=== PATIENT | male | born 1965 | race Caucasian/White ===

== ENCOUNTER → 2020-09-08 | Outpatient (CLI) | payer OTHER ==
[~2020-09-08] MED LIST: ALEVE220 MG PO; ASPIRIN325 PO; LISINOPRIL-HCT1 EAC1 PO
== END ==
LOC: M.MRI 09-03 07:30
PROVIDERS: ATTEND Orthopaedic Surgery
DX: Z01.818 Encounter for other preprocedural examination (principal); M17.11 Unilateral primary osteoarthritis, right knee; M25.461 Effusion, right knee

== ENCOUNTER → 2020-09-21 | Outpatient (CLI) | payer OTHER ==
[~2020-09-21] MED LIST changes: -ASPIRIN325 PO
[2020-09-21 10:52] LABS: ABSOLUTE BASOPHILS 0.1 thou/uL (0.0-0.2); ABSOLUTE EOSINOPHILS 0.3 thou/uL (0.0-0.7); ABSOLUTE LYMPHOCYTES 1.9 thou/uL (0.8-5.3); ABSOLUTE MONOCYTES 0.5 thou/uL (0.0-1.2); ABSOLUTE NEUTROPHILS 5.1 thou/uL (1.6-8.1); BASOPHILS 1.2 %; EOSINOPHILS 3.3 %; HEMATOCRIT 46.3 % (42.0-52.0); HEMOGLOBIN 15.6 gm/dL (14.0-18.0); LYMPHOCYTES 23.7 %; MCH 29.8 pg (26.0-34.0); MCHC 33.7 g/dL (28.0-37.0); MCV 88.5 fL (80.0-100.0); MONOCYTES 6.9 %; MPV 8.3 fl. (7.2-11.1); NUCLEATED RBCS 0 /100WBC; PLATELET COUNT* 284 thou/uL (150-400); POLYS 64.9 %; RBC 5.23 mil/uL (4.50-6.00); RDW-CV 15.6 % (10.5-14.5); WBC 7.8 thou/uL (4.0-11.0)
[2020-09-21 10:53] LABS: URINE BILIRUBIN NEGATIVE (Negative); URINE BLOOD NEGATIVE (Negative); URINE CLARITY CLEAR; URINE COLOR YELLOW; URINE GLUCOSE-RANDOM NEGATIVE (Negative); URINE KETONES NEGATIVE (Negative); URINE LEUKOCYTES-REFLEX NEGATIVE (Negative); URINE NITRITE-REFLEX NEGATIVE (Negative); URINE PROTEIN NEGATIVE (Negative); URINE UROBILINOGEN 0.2 E.U./dl (0.2-1.0)
[2020-09-21 11:02] LABS: PROTIME 10.3 Seconds (9.20-11.50)
[2020-09-21 11:15] LABS: ALBUMIN 4.7 g/dL (3.4-5.0); POTASSIUM 4.5 mmol/L (3.5-5.1); TOTAL BILIRUBIN 0.5 mg/dL (<0.1-1.0); TOTAL PROTEIN 8.4 g/dL (6.4-8.2)
--- NOTE | 2020-09-21 11:29 | EKG ---
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
== END ==
LOC: M.LAB 05:13
PROVIDERS: ATTEND Orthopaedic Surgery
DX: Z01.812 Encounter for preprocedural laboratory examination (principal); M17.11 Unilateral primary osteoarthritis, right knee

== ENCOUNTER 2020-09-28 08:26 | Inpatient (IN) | payer OTHER ==
[~2020-09-28] VITALS: Ht 177.8 cm; Wt 97.5 kg
[2020-09-28 10:01] VITALS: BP 131/77
[2020-09-28 16:00] VITALS: BP 153/87
[2020-09-28 20:30] VITALS: BP 141/82
[2020-09-29 00:23] VITALS: BP 132/75
[2020-09-29 04:41] VITALS: BP 122/73
[2020-09-29 04:57] LABS: ABSOLUTE LYMPHOCYTES 1.7 thou/uL (0.8-5.3); ABSOLUTE MONOCYTES 1.3 thou/uL (0.0-1.2); ABSOLUTE NEUTROPHILS 10.9 thou/uL (1.6-8.1); BASOPHILS 0.1 %; EOSINOPHILS 0.2 %; HEMATOCRIT 39.3 % (42.0-52.0); HEMOGLOBIN 13.3 gm/dL (14.0-18.0); LYMPHOCYTES 12.4 %; MCH 29.4 pg (26.0-34.0); MCHC 33.8 g/dL (28.0-37.0); MCV 86.8 fL (80.0-100.0); MONOCYTES 9.6 %; MPV 9.1 fl. (7.2-11.1); NUCLEATED RBCS 0 /100WBC; PLATELET COUNT* 288 thou/uL (150-400); POLYS 77.7 %; RBC 4.53 mil/uL (4.50-6.00); RDW-CV 15.1 % (10.5-14.5)
[2020-09-29 05:07] LABS: ALBUMIN 3.8 g/dL (3.4-5.0); CREATININE 1.1 mg/dL (0.6-1.3); POTASSIUM 3.9 mmol/L (3.5-5.1); TOTAL BILIRUBIN 0.7 mg/dL (<0.1-1.0)
[2020-09-29 07:55] VITALS: BP 145/83
[2020-09-29 08:41] VITALS: BP 122/73
[2020-09-29] MEDS ORDERED: ASPIRIN325 PO (11:48)
[2020-09-29 13:30] VITALS: BP 122/73
[2020-09-29 14:24] VITALS: BP 122/73
--- NOTE | 2020-09-30 10:24 | OP ---
[address] [address] OPERATIVE REPORT Name: GELA BLAKELY Room: [address] [place] .R.#: [id number] Admission: 09/28/20 Attend Phys: Gloria Wright Discharge: 09/29/20 Date of : 61 Report #: [id number] THIS REPORT FOR: cc: Tamara Farrell Pamela D. DO Greiner, Robert F. II DO ~ DOC #: [id number] Vishal Khan II, DO DATE OF SURGERY: 09/28/2020 PREOPERATIVE DIAGNOSIS: Right knee osteoarthritis. POSTOPERATIVE DIAGNOSIS: Right knee osteoarthritis. PROCEDURE: Right total knee arthroplasty. SURGEON: Vishal Khan DO. EXECUTIVE DIRECTOR OF NURSING: None. ANESTHESIA: General endotracheal. ESTIMATED BLOOD LOSS: 50 mL ANTIBIOTICS: Ancef preoperatively. DRAINS: Medium Hemovac. COMPLICATIONS: None. CONDITION OF THE PATIENT: Stable to recovery room. IMPLANTS: Listed in operative record and progress note. BRIEF HISTORY: The patient is seen in the preoperative area. Preoperative H and P was performed. Site was marked, questions were answered. Risks and benefits were discussed with the patient in detail about surgery. The patient wished to proceed assuming all risks. OPERATIVE PROCEDURE: The patient was taken to the operative suite and placed supine on the OR table with appropriate anesthesia. A well-padded tourniquet was applied to the upper thigh, which was inflated to 300 mmHg after gravity exsanguination. The operative knee was sterilely prepped and draped. Surgery began by a midline incision. This was carried down to subcutaneous tissues. A medial parapatellar arthrotomy was performed and carried down to bone. Patella was everted and excess soft tissue was removed [place] [address] OPERATIVE REPORT Name: GELA BLAKELY Room: [address]#: [id number] Admission: 09/28/20 Attend Phys: Gloria Wright Discharge: 09/29/20 Date of : 61 Report #: [id number] cutting block was then applied, checked with a drop little for rotational alignment, pinned in appropriate position and appropriate cuts were made. A 4-in-1 cutting block was then applied, checked for rotational alignment, pinned in appropriate position and appropriate cuts were made. The tibia was exposed, excess meniscus was removed. Retractors were placed on the collateral ligaments. The tibial cutting block was then applied, pinned in appropriate position, checked with a drop little for rotational alignment and slope and appropriate cut was made. Tibial bone was removed, tibial base plate was then applied, checked for rotational alignment with the drop little and then pinned in appropriate position. The femur was then applied and a box cut was reamed. This was trialed with appropriate spacer, which showed excellent fit and fill and excellent stability throughout all range of motion. The patella was reamed in appropriate fashion, sized to appropriate size. Three peg holes were drilled and it was then trialed, it showed excellent flexion and extension and excellent tracking of the patella within the groove. These trials were removed. The tibia was punched in appropriate fashion. Bone ends were cleansed with Pulsavac irrigation and cement was mixed and applied to the final implants. These were then malleted into position and held the knee in extension and compressed to allow the cement to cure. After cured, excess was removed using [place] and osteotome. The wound was then copiously irrigated and the final spacer was then malleted into position. The tourniquet was deflated and hemostasis was obtained with electrocautery. Pain cocktail was injected. Medium Hemovac drain was applied. Capsule was closed with #2 FiberWire and #1 Vicryl in [id number] fashion. Skin was closed with 2-0 Vicryl and a running 3-0 Monocryl. Dermabond and sterile dressing applied. Harman wrap and PolarCare applied. The patient transported to recovery in stable condition. Counts were correct throughout the procedure. Vishal Khan II, DO RFG/ORL <ELECTRONICALLY SIGNED> By: Vishal Khan II, DO 09/30/20 1024 0610 0845Vishal Khan II, DO /nt
== END 2020-09-29 14:00 | disposition home health service (06) | DRG 470 ==
LOC: M.TBA 08:26 → M.ORTHSURG 10:25 → M.TBA 10:48 → M.ORTHSURG 10:48 → EDSTATUS 17:17 → M.ORTHSURG 17:27
PROVIDERS: Orthopaedic Surgery; ADMIT Internal Medicine; ATTEND Internal Medicine
PROC: 0SRC0J9 Replacement of Right Knee Joint with Synthetic Substitute, Cemented, Open Approach (ICD-10-PCS; principal; 2020-09-28)
PROC: 3E0T3BZ Introduction of Anesthetic Agent into Peripheral Nerves and Plexi, Percutaneous Approach (ICD-10-PCS; 2020-09-28)
DX: M17.11 Unilateral primary osteoarthritis, right knee (principal); I10 Essential (primary) hypertension; F12.90 Cannabis use, unspecified, uncomplicated; Z79.899 Other long term (current) drug therapy